=== PATIENT | female | born 1955 | race Caucasian/White ===

== ENCOUNTER 2016-03-02 14:36 | Outpatient (RCR) | payer OTHER ==
[~2016-03-02 14:36] MED LIST: ALBU17AE23 IH; C250T PO; CITA10TA70 PO; CLON0.1T PO; CYAN10007 PO; CYCL10TA9 PO; DULO60CA6 PO; HYDR-2856 PO; HYDR1TAB PO; LOSA100T16 PO; LOVA20TA2 PO; OMG1KC PO; PIRO20CA2 PO; PRD50T PO; SMZ/TMP; SPRN25T GT; SULF1TAB23 PO; TRM50T PO; VITAMIN B6 PO
--- NOTE | 2016-03-03 13:35 | ECHOCARDIOGRAPHY REPORT ---
PROCEDURE PHYSICIAN: MARCELINO ALLRED DATE OF PROCEDURE: 03/02/2016 TWO DIMENSIONAL ECHOCARDIOGRAM REPORT PRIMARY PHYSICIAN: OTHER PHYSICIAN: REFERRING PHYSICIAN: [facility] ORDERING PHYSICIAN: INDICATION FOR THE PROCEDURE: Chest pain. MEASUREMENTS DERIVED VALUES LV DIAMETER (LAX) NORMALS NORMALS Diastolic 4.3 (3.6-5.2) Eject. Fract. 60% (60%+/-6%) Systolic (2.3-3.9) Diastolic Vol. % Shortening (0.22-0.42) Systolic Vol. Aortic Root IVS THICKNESS Diastolic 1 (0.6-1.1) LVPW THICKNESS Diastolic 1 (0.6-1.1) LA DIAMETER Systolic 3.4 (2.1-3.7) FINDINGS: 1. Technical quality is good. 2. The left ventricle is normal in size with normal contractility. Systolic function appeared to be normal. Estimated ejection fraction 60%. 3. The left atrium is normal in size. No clot or thrombus were seen within the left atrium. 4. The right atrium and right ventricle are normal in size. No clot or thrombus were seen within the right side. 5. Mitral valve is normal in morphology with mild mitral regurgitation noted by color Doppler flow. No mitral valve prolapse. No mitral valve stenosis. 6. Aortic valve is trileaflet with normal opening and closing pattern. No significant aortic stenosis or regurgitation was seen. 7. Tricuspid valve is normal in morphology with mild tricuspid regurgitation noted by color Doppler flow. Doppler across tricuspid valve estimated pulmonary artery pressure of 12+ right atrial pressure. 8. Pulmonic valve is functioning normally. 9. No pericardial effusion. CONCLUSION: 1. Normal left ventricular size and systolic function. Estimated ejection fraction is 60%. 2. Mild mitral and tricuspid regurgitation. 3. Estimated pulmonary artery pressure of 20 mmHg. Job ID: [id number] Dictated Date: 03/03/2016 11:55:21 Boiler Control Technician Date: 03/03/2016 13:31:58 / marlo
== END 2016-05-31 | disposition home or self-care (01) ==
LOC: CARD 14:36
PROVIDERS: ATTEND Internal Medicine Cardiovascular Disease
DX: R07.9 Chest pain, unspecified (principal)
CPT/HCPCS: 93225; 93226; 93306

== ENCOUNTER → 2016-05-27 | Outpatient (CLI) | payer OTHER ==
[2016-05-27 10:31] LABS: ALANINE AMINOTRANSFERASE 27 U/L (0-55); ALBUMIN 4.1 G/DL (3.2-4.5); ANION GAP 9 MMOL/L (5-14); ASPARTATE AMINO TRANSFERASE 20 U/L (5-34); BILIRUBIN,TOTAL 0.6 MG/DL (0.1-1.0); BLOOD UREA NITROGEN 7 MG/DL (7-18); BUN/CREATININE RATIO 8; CALCIUM 9.2 MG/DL (8.5-10.1); CARBON DIOXIDE 26 MMOL/L (21-32); CHLORIDE 106 MMOL/L (98-107); CHOLESTEROL 181 MG/DL (< 200); CREATININE SERUM 0.87 MG/DL (0.60-1.30); DIRECT LDL 120 MG/DL (1-129); GFR ESTIMATED > 60; GLUCOSE 95 MG/DL (70-105); SODIUM 141 MMOL/L (135-145); TOTAL PROTEIN 7.2 G/DL (6.4-8.2); TRIGLYCERIDES 207 MG/DL (<150); VLDL CHOLESTEROL 41 MG/DL (5-40)
--- NOTE | 2016-05-27 16:27 | Diagnostic Imaging Report ---
Bilateral renal duplex arterial ultrasound. INDICATION: Hypertension. FINDINGS: The right kidney is 9.9 and the left kidney is 11.2 cm in length. There is no hydronephrosis or focal lesion. The peak systolic velocities in the right renal artery are 104, 83 and 52 cm per second from proximal to distal. The left renal artery velocities are 120, 114 and 90 cm per second from proximal to distal. The resistive index in the right kidney is in the range of 0.61-0.63 and on the right side values obtained are 0.65. IMPRESSION: No ultrasound evidence of significant renal artery stenosis. Dictated by: Dictated on workstation # [id number]
== END ==
LOC: RAD 08:57
PROVIDERS: ATTEND Internal Medicine Cardiovascular Disease
DX: R07.9 Chest pain, unspecified (principal); I10 Essential (primary) hypertension; I34.0 Nonrheumatic mitral (valve) insufficiency; I07.1 Rheumatic tricuspid insufficiency
CPT/HCPCS: 36415; 80053; 80061; 93975

== ENCOUNTER 2020-03-27 01:39 | Emergency (ER) | payer SELFPAY ==
[~2020-03-27] VITALS: Ht 157.5 cm; Wt 95.7 kg
[~2020-03-27 01:39] MED LIST changes: +CLN.1T PO; -CLON0.1T PO
[2020-03-27] MEDS ORDERED: NS IV 1000 ML 1,000 ML IV SCH (02:00)
[2020-03-27 02:08] LABS: BASOPHILS # (AUTO) 0.1 10^3/uL (0.0-0.1); BASOPHILS % (AUTO) 1 % (0-10); EOSINOPHILS # (AUTO) 0.5 10^3/uL (0.0-0.3); EOSINOPHILS % (AUTO) 4 % (0-10); HEMATOCRIT 43 % (35-52); HEMOGLOBIN 13.8 g/dL (11.5-16.0); LYMPHOCYTES # (AUTO) 3.1 10^3/uL (1.0-4.0); LYMPHOCYTES % (AUTO) 25 % (12-44); MEAN CORPUSCULAR HEMOGLOBIN 29 pg (25-34); MEAN CORPUSCULAR HGB CONC 32 g/dL (32-36); MEAN CORPUSCULAR VOLUME 90 fL (80-99); MEAN PLATELET VOLUME 8.9 fL (9.0-12.2); MONOCYTES # (AUTO) 0.8 10^3/uL (0.0-1.0); MONOCYTES % (AUTO) 6 % (0-12); NEUTROPHILS # (AUTO) 7.8 10^3/uL (1.8-7.8); NEUTROPHILS % (AUTO) 64 % (42-75); PLATELET COUNT 431 10^3/uL (130-400); WHITE BLOOD COUNT 12.4 10^3/uL (4.3-11.0)
[2020-03-27 02:19] LABS: CHLORIDE 102 MMOL/L (98-107); INR 0.9 (0.8-1.4); POTASSIUM 3.5 MMOL/L (3.6-5.0); PROTHROMBIN TIME PATIENT 12.4 SEC (12.2-14.7); SODIUM 140 MMOL/L (135-145)
[2020-03-27 02:21] LABS: AMYLASE 58 U/L (25-125); CALCIUM 9.3 MG/DL (8.5-10.1)
[2020-03-27 02:22] LABS: GLUCOSE 134 MG/DL (70-105); TOTAL PROTEIN 7.1 GM/DL (6.4-8.2)
[2020-03-27 02:23] LABS: CARBON DIOXIDE 24 MMOL/L (21-32)
[2020-03-27 02:24] LABS: BILIRUBIN,TOTAL 0.5 MG/DL (0.1-1.0)
[2020-03-27 02:26] LABS: ALKALINE PHOSPHATASE 113 U/L (40-136); CREATININE SERUM 0.97 MG/DL (0.60-1.30); GFR ESTIMATED 58
[2020-03-27 02:27] LABS: BUN/CREATININE RATIO 10
[2020-03-27 02:29] LABS: ALANINE AMINOTRANSFERASE 16 U/L (0-55); LIPASE 48 U/L (8-78)
[2020-03-27 02:53] LABS: ACETAMINOPHEN < 10 UG/ML (10-30)
[2020-03-27 04:15] LABS: BILIRUBIN,URINE NEGATIVE (NEGATIVE); CLARITY,URINE CLEAR; COLOR,URINE YELLOW; GLUCOSE, URINE (UA) NEGATIVE (NEGATIVE); KETONES,URINE NEGATIVE (NEGATIVE); LEUKOCYTE ESTERASE ,URINE TRACE (NEGATIVE); NITRITE,URINE NEGATIVE (NEGATIVE); PROTEIN,URINE NEGATIVE (NEGATIVE)
[2020-03-27 04:25] LABS: AMPHETAMINE SCREEN, URINE NEGATIVE (NEGATIVE); BACTERIA,URINE TRACE /HPF; BARBITURATE SCREEN URINE NEGATIVE (NEGATIVE); BENZODIAZEPINES SCREEN URINE POSITIVE (NEGATIVE); CANNABINOID SCREEN, URINE NEGATIVE (NEGATIVE); COCAINE SCREEN URINE NEGATIVE (NEGATIVE); METHADONE STAT NEGATIVE (NEGATIVE); METHAMPHETAMINE SCREEN URINE S NEGATIVE (NEGATIVE); OPIATE SCREEN URINE NEGATIVE (NEGATIVE); OXYCODONE STAT NEGATIVE (NEGATIVE); PROPOXYPHENE STAT NEGATIVE (NEGATIVE); TRICYCLIC ANTIDEPRESSANTS SCRE NEGATIVE (NEGATIVE); WBC,URINE RARE /HPF
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
[2020-03-27] MEDS ORDERED: HYDROcodone/APAP 5 MG/325 MG (LORTAB) TAB PO ONE (05:30)
[2020-03-27] MEDS ORDERED: ACHD5005 PO (05:44)
[2020-03-27] MEDS ORDERED: TETANUS,DIPTH,PERTUSS P/F (BOOSTRIX) 0.5 ML VIAL IM ONE (05:45)
[2020-03-27 06:05] VITALS: BP 140/92
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
--- NOTE | 2020-03-27 07:13 | Diagnostic Imaging Report ---
Indication: Left forearm pain. COMPARISON: None available. TECHNIQUE: 2 views of the left forearm were obtained. FINDINGS: There is an acute, segmental type fracture involving the distal one 3rd of the ulnar diaphysis. The distal fracture fragment has anterior displacement of approximately half a shaft width. There is also slight ulnar angulation of the distal fracture fragment. No dislocation of the proximal radiocapitellar joint. No radial fracture. IMPRESSION: Acute segmental fracture in the distal one 3rd of the ulnar diaphysis is mildly displaced. Dictated by: Dictated on workstation # [id number]
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
== END 2020-03-27 06:05 | disposition home or self-care (01) ==
LOC: EDUNIT# 01:39 → ER 01:41
DX: S52.692A Other fracture of lower end of left ulna, initial encounter for closed fracture (principal); S16.1XXA Strain of muscle, fascia and tendon at neck level, initial encounter; S05.12XA Contusion of eyeball and orbital tissues, left eye, initial encounter; S09.90XA Unspecified injury of head, initial encounter; F41.9 Anxiety disorder, unspecified; E66.9 Obesity, unspecified; I10 Essential (primary) hypertension; R40.2410 Glasgow coma scale score 13-15, unspecified time; Z23 Encounter for immunization; Z68.38 Body mass index [BMI] 38.0-38.9, adult; Z95.9 Presence of cardiac and vascular implant and graft, unspecified; Z88.5 Allergy status to narcotic agent; Z88.8 Allergy status to other drugs, medicaments and biological substances; Y04.2XXA Assault by strike against or bumped into by another person, initial encounter; Y07.499 Other family member, perpetrator of maltreatment and neglect
CPT/HCPCS: 29125; 70450; 70486; 71045; 71250; 72125; 72128; 72131; 73080; 73090; 74176; 80053; 80306; 81000; 82150; 83690; 85025; 85610; 85730; 90471; 93005; 93041; 99284; G0480 ×2; 36415; 80320; 80329; 90715

== ENCOUNTER 2020-10-22 02:27 | Emergency (ER) | payer SELFPAY ==
[~2020-10-22] VITALS: Ht 157.5 cm; Wt 90.7 kg
[~2020-10-22 02:27] MED LIST changes: +ACHD5005 PO
[2020-10-22 02:36] VITALS: BP 145/96
--- NOTE | 2020-10-22 03:03 | ED Neurological Problem ---
General Chief Complaint: Neurological Problems Stated Complaint: VISION RT BLURRY,SENSITIVE TO LIGHT,DRIBBLES Nursing Triage Note: AMBULATES TO ROOM #6 W/CO NEUROLOGICAL SX. PT REPORTS ON 10/20/20 SHE DEVELOPED L SIDED FACIAL DROOPING AND DIFFICULTY DRINKING FLUIDS RESULTING IN DROOLING OUT OF THE L SIDE OF MOUTH. PT REPORTS SENSATIONS OF DRYNESS TO R EYE THAT ALSO BEGAN ON 10/20/20. PT REPORTS SHE HAS BEEN USING OTC LUBRICATING EYE DROPS TO R EYE. Source: patient Exam Limitations: no limitations History of Present Illness Date Seen by Provider: Oct 22, 2020 Time Seen by Provider: 02:44 Initial Comments Patient to the ER by private conveyance from home with chief complaint of right facial droop and dribbling when she drinks as well as some dry eye on the right side of her face that has not progressed. She her daughter has a history of Johnson's palsy. The patient has no history of A. fib she is on a blood thinners and has no history of coronary disease. The patient is having no weakness difficulty walking, difficulty speaking or understanding. Echocardiogram by Dr. Ndiaye 2015 shows a normal EF of 60%. Cardiac catheterization 2010 normal coronary arteries with an EF of 60%. Normal thoracic aortogram. Allergies and Home Medications Allergies Coded Allergies: trazodone (Unverified Allergy, Intermediate, HIVES, 02/20/13) amitriptyline (Verified Allergy, Unknown, HALLUCINATIONS, 12/13/15) codeine (Verified Allergy, Unknown, 05/26/08) losartan potassium (Unverified Allergy, Unknown, 02/20/13) nefazodone HCl (Unverified Allergy, Unknown, 02/20/13) venlafaxine (Verified Adverse Reaction, Intermediate, hypertension, 12/12) bupropion (Unverified Adverse Reaction, Mild, unable to function, 12/13/15) citalopram (Verified Adverse Reaction, Mild, ineffective, 12/13/15) fluoxetine (Verified Adverse Reaction, Mild, ineffective, 12/13/15) hydrochlorothiazide (Verified Adverse Reaction, Mild, hives, 12/13/15) mirtazapine (Verified Adverse Reaction, Mild, weight gain, 12/13/15) paroxetine (Verified Adverse Reaction, Mild, increased anxiety, 12/13/15) piroxicam (Verified Adverse Reaction, Mild, hives, 12/13/15) propranolol (Unverified Adverse Reaction, Mild, FORGETFULNESS, 02/20/13) duloxetine (Unverified Adverse Reaction, Unknown, 12/13/15) escitalopram (Unverified Adverse Reaction, Unknown, 12/13/15) Uncoded Allergies: LUVOX CR (Adverse Reaction, Intermediate, visual hallucinations, 12/13/15) AMITRIPTYLINE HCL (Adverse Reaction, Unknown, 12/13/15) Home Medications Clonidine HCl 0.1 Mg Tablet, 0.1 MG PO BID, (Reported) Hydrocodone/Acetaminophen 1 Each Tablet, 1 EACH PO Q4-6 HOURS PRN for PAIN Prescribed by: WILLIAMS JUNE on 03/27/20 0544 Patient Home Medication List Home Medication List Reviewed: Yes Review of Systems Review of Systems Constitutional: No chills, No diaphoresis Eyes: Denies Blindness, Denies Blurred Vision Ears, Nose, Mouth, Throat: denies ear pain, denies ear discharge Respiratory: No cough, No short of breath Cardiovascular: No chest pain, No edema, No Hx of Intervention, No palpitations Gastrointestinal: No abdominal pain, No constipation, No nausea Genitourinary: No discharge, No dysuria Musculoskeletal: No back pain, No joint pain All Other Systems Reviewed Negative Unless Noted: Yes Past Qwtunjy-Frvjjc-Nxgrxc Hx Patient Social History Tobacco Use?: No Substance use?: No Pt feels they are or have been: No Immunizations Up To Date First/Initial COVID19 Vaccinat: DENIES Seasonal Allergies Seasonal Allergies: Yes Past Medical History Surgeries: Yes (See previous medical hx et hemorrhoidectomy 20 yrs ago.) Cardiac, Rectal, Tonsillectomy, Tubal Ligation Respiratory: No Cardiac: Yes (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;CARDIAC CATH X2;"BROKEN HEART SYNDROME"/CHRONIC CP) High Cholesterol, Hypertension, Rheumatic Fever Neurological: No Reproductive Disorders: No [employer] History: Menopausal Genitourinary: No Gastrointestinal: No Musculoskeletal: Yes (Osteoarthrosis) Arthritis Endocrine: Yes (OBESITY) Hypothyroidsim HEENT: No Cancer: No Psychosocial: Yes Anxiety, Depression Integumentary: No Blood Disorders: No Family Medical History No Pertinent Family Hx PAST SURGICAL / PROCEDURE HISTORY: -CARDIAC CATH 05/2008--NON-OBSTRUCTIVE DISEASE, NO INTERVENTION -CARDIAC CATH 03/2011--NORMAL, EF 60%. NO INTERVENTION -STRESS TEST 03/2016--NORMAL, EF 68% COLONOSCOPY 02/2013--NORMAL EXCEPT FOR HEMORRHOIDS. Physical Exam Vital Signs Vital Signs - First Documented 10/22/20 02:36 Temp 36.5 Pulse 84 Resp 18 B/P (MAP) 145/96 (112) Pulse Ox 96 O2 Delivery Room Air Capillary Refill : Less Than 3 Seconds Height, Weight, BMI Height: 5'2.00" Weight: 192lbs. 0.0oz. [id number]; 36.00 BMI Method:Stated General Appearance: WD/WN, no apparent distress HEENT: PERRL/EOMI, pharynx normal Neck: non-tender, normal inspection Respiratory: lungs clear, normal breath sounds, no respiratory distress, no accessory muscle use Cardiovascular: normal peripheral pulses, regular rate, rhythm Peripheral Pulses: 2+ Radial Pulses (R), 2+ Radial Pulses (L) Gastrointestinal: normal bowel sounds, non tender, soft, no organomegaly Neurologic/Psychiatric: alert, normal mood/affect, oriented x 3, other (No sensory deficits. Cranial nerve VII on the right with no sparing of the forehead muscles is in involved in a palsy. NIH 0 points. No expressive aphasia or dysarthria noted.) Crainal Nerves: normal hearing, normal speech, PERRL Coordination/Gait: normal finger to nose, normal gait Motor/Sensory: no sensory deficit, no pronator drift, other (Cranial nerve VII motor weakness) Skin: normal color, warm/dry Progress/Results/Core Measures Results/Orders Lab Results Laboratory Tests Test 10/22/20 02:51 Range/Units Glucometer 103 70-110 MG/DL Vital Signs/I&O 10/22/20 02:36 Temp 36.5 Pulse 84 Resp 18 B/P (MAP) 145/96 (112) Pulse Ox 96 O2 Delivery Room Air Blood Pressure Mean: 112 FSBG Bedside Testing Finger Stick Blood Glucose: 103 Blood Glucose Action Taken: PROVIDER NOTIFIED Progress Progress Note : Time: 03:03 Progress Note Blood sugar unremarkable. No evidence of A. fib on monitor. 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 Plan to put her on acyclovir 5 times a day and a Medrol Dosepak. Follow-up outpatient with primary care. She has some lubricating eyedrops and will encourage her to get more of those and continue using them routinely throughout the day. Return precautions were discussed. Initial ECG Impression Date: Oct 22, 2020 Initial ECG Impression Time: 02:47 Initial ECG Rate: 75 Initial ECG Rhythm: Normal Sinus Initial ECG Intervals: Normal Initial ECG Impression: Normal Initial ECG Comparisson: Unchanged Comment Normal sinus rhythm without clinically relevant ST elevation or depression. Departure Impression Primary Impression: Johnson's palsy Disposition: 01 HOME, SELF-CARE Condition: Stable Departure-Patient Inst. Decision time for Depature: 03:04 Referrals: [facility][1[facility] (PCP) Primary Care Physician CLAUDIA DOTSON (Family) Primary Care Physician Patient Instructions: Johnson's Palsy (DC) Add. Discharge Instructions: Promptly return to the ER if you start developing new symptoms outside of your face such as numbness, weakness in your arms or legs, confusion etc. These are not part of Johnson's palsy. Johnson's palsy is a weakness of the 7th cranial nerve which controls the muscles of your face. It is thought that this is caused by a virus and so we will put you on antiviral medications for the next week. Acyclovir 5 times a day for 7 days. Medrol Dosepak to help hasten the healing time. Follow-up in the next 1 to 2 weeks with your primary care doctor for reevaluation. It is important that you keep your eyes moisturized at least every hour if not more frequently to prevent ulceration of the cornea. All discharge instructions reviewed with patient and/or family. Voiced understanding. Scripts Methylprednisolone (Methylprednisolone Dose Pack) 4 Mg Tab.ds.pk 4 MG PO UD for 6 Days, #21 PKG 0 Refills PER DOSE PACK INSTRUCTIONS Prov: LAILA ROSS 10/22/20 Acyclovir (Acyclovir) 800 Mg Tablet 800 MG PO 5XD for 7 Days, #35 TAB 0 Refills Prov: LAILA ROSS 10/22/20 LAILA ROSS Oct 22, 2020 03:03
[2020-10-22] MEDS ORDERED: METH4TAB10 PO (03:07)
[2020-10-22] MEDS ORDERED: ACYC-112 PO (03:07)
== END 2020-10-22 03:15 | disposition home or self-care (01) ==
LOC: EDUNIT# 02:27 → ER 02:33
DX: G51.0 Bell's palsy (principal); E66.9 Obesity, unspecified; I10 Essential (primary) hypertension; Z68.36 Body mass index [BMI] 36.0-36.9, adult; Z79.899 Other long term (current) drug therapy
CPT/HCPCS: 82947; 93005

== ENCOUNTER → 2022-11-17 | Outpatient (CLI) | payer MEDICARE, MEDICAID ==
[~2022-11-17] MED LIST changes: +ACYC-112 PO; +METH4TAB10 PO
--- NOTE | 2022-11-17 16:29 | Diagnostic Imaging Report ---
INDICATION: Postmenopausal screening COMPARISON: Baseline FINDINGS: AP Spine L1-L4: [BMD (g/cm2): 0.723] [T-Score: -4.0] [Z-Score: -3.6] [BMD Previous: na] [BMD % Change: na] LT Hip Neck: [BMD (g/cm2): 0.648] [T-Score: -2.8] [Z-Score: -2.1] LT Hip Total: [BMD (g/cm2):0.797] [T-Score:-1.7] [Z-Score: -1.3] [BMD Previous: na] [BMD % Change: na] RT Hip Neck: [BMD (g/cm2):0.803] [T-Score:-1.7] [Z-Score:-1.0] RT Hip Total: [BMD (g/cm2):0.874] [T-score:-1.1] [Z-Score:-0.7] [BMD Previous:na] [BMD % Change:na] *Indicates significant change from prior examination based on 95% confidence level. World Health Organization criteria for BMD interpretation classify patients as Normal (T-score at or above -1.0), Osteopenic (T-score between -1.0 and -2.5) or Osteoporotic (T-score at or below -2.5). LIMITATIONS AND MODIFICATION: None. FRACTURE RISK (FRAX SCORE): The ten year probability of (%): Major Osteoporotic Fracture: [23.2] Hip Fracture: [3.5] IMPRESSION: 1. Osteoporosis. 2. Baseline examination. 3. See below National Osteoporosis Foundation guidelines on when to potentially initiate pharmacologic therapy. Based on the National Osteoporosis Foundation Guidelines, pharmacologic treatment should be initiated in any of the following, unless clinical conditions suggest otherwise: * Any patient with prior fragility fracture of the hip or vertebrae. A spine fracture indicates 5X risk for subsequent spine fracture and 2X risk for subsequent hip fracture. * Osteoporosis (T-score <-2.5). * Postmenopausal women and men age 50 and older with low bone mass/osteopenia (T-score between -1.0 and -2.5) by DXA and 10-year major osteoporotic fracture greater than 20% or a 10-year probability of hip fracture greater than 3%. These fracture risks are supplied above in the FRAX score, if applicable. * Clinician judgement and/or patient preferences may indicate treatment for people with 10-year fracture probabilities above or below these levels. Dictated by: Dictated on workstation # [id number]
== END ==
LOC: RAD 13:30
PROVIDERS: ATTEND Nurse Practitioner Family
DX: Z13.820 Encounter for screening for osteoporosis (principal); M81.0 Age-related osteoporosis without current pathological fracture; Z78.0 Asymptomatic menopausal state
CPT/HCPCS: 77080